=== PATIENT | female | born 1950 | race Caucasian/White ===

== ENCOUNTER → 2018-09-13 | Outpatient (CLI) | payer OTHER, BC | LOC: FIMAGING 15:43 | PROVIDERS: ATTEND Physician Assistant Surgical | DX: M50.321 Other cervical disc degeneration at C4-C5 level (principal); M43.8X2 Other specified deforming dorsopathies, cervical region ==

== ENCOUNTER 2018-09-14 10:37 | Inpatient (IN) | payer OTHER, BC ==
[2018-09-14] MEDS ORDERED: ceFAZolin 2 GM/DEXTROSE 100 ML IV ONE (10:59)
[2018-09-14] MEDS ORDERED: ACETAMINOPHEN 500 MG TAB PO ONE (10:59)
[2018-09-14] MEDS ORDERED: GABAPENTIN 300 MG CAP PO ONE (10:59)
[2018-09-14] MEDS ORDERED: LR 1,000 ML IV ONE (10:59)
[2018-09-14] MEDS ORDERED: LIDOCAINE 1% 2 ML INJ ID PRN (10:59)
[2018-09-14 11:42] LABS: PLATELET COUNT 250 10^3/uL (150-400)
--- NOTE | 2018-09-14 11:53 | PDHPUP ---
History & Physical Update H&P update statement: This history and physical update is based on an assessment of the patient which was completed after admission or registration (within 24 hours), but prior to the surgery/procedure. H&P update: H&P reviewed & patient examined, no change in patient's condition since H&P completed
[2018-09-14] MEDS ORDERED: EPINEPHrine 1 MG/ML INJ ONE (12:08)
[2018-09-14] MEDS ORDERED: CHLORHEXIDINE GLUC HIBICLENS 118 ML BTL TP ONE (12:08)
[2018-09-14] MEDS ORDERED: THROMBIN (BOVINE) 5,000 UNIT VIAL TP ONE (12:08)
[2018-09-14] MEDS ORDERED: BUPIVACAINE 0.25% 30 ML SDV ONE (12:08)
[2018-09-14] MEDS ORDERED: BACITRACIN 50,000 UNITS/10 ML SYR IRR ONE (12:09)
[2018-09-14] MEDS ORDERED: MIDAZOLAM 2 MG/2 ML VIAL IVP ONE (12:17)
--- NOTE | 2018-09-14 12:17 | PDANEPAE ---
ANE Past Medical History - Cardiovascular History Hx Hypertension: Yes Hx Arrhythmias: No Hx Chest Pain: No Hx Coronary Artery / Peripheral Vascular Disease: No Hx CHF / Valvular Disease: No Hx Palpitations: No Cardiovascular History Comment: ONCE WAS TOLD I HAD MV PROLAPSE, NEVER HAD ANY PROBLEMS - Pulmonary History Hx COPD: No Hx Asthma/Reactive Airway Disease: No Hx Recent Upper Respiratory Infection: No Hx Oxygen in Use at Home: No Hx Sleep Apnea: No Sleep Apnea Screening Result - Last Documented: Negative - Neurologic History Hx Cerebrovascular Accident: No Hx Seizures: No Hx Dementia: No - Endocrine History Hx Diabetes: No - Renal History Hx Renal Disorders: No - Liver History Hx Hepatic Disorders: No Hepatic History Comment: HEMACHROMATOSIS - Neurological & Psychiatric Hx Hx Neurological and Psychiatric Disorders: Yes Neurological / Psychiatric History Comment: LUPUS,FIBROMYALGIA - Cancer History Hx Cancer: No - Congenital Disorder History Hx Congenital Disorders: Yes Congenital History Comment: HEMACHROMATOSIS - GI History Hx Gastrointestinal Disorders: Yes Gastrointestinal History Comment: 2011 BOWEL BLOCKAGE. AND RESECTION - Other Health History Other Health History: NONE - Chronic Pain History Chronic Pain: Yes (FIBROMYALGIA) - Surgical History Prior Surgeries: 2011 BOWEL OBSTRUCTION WITH RESECTION. HERNIA REPAIR ANE Review of Systems Review of Systems: - Exercise capacity METS (RN): 4 METS ANE Patient History - Allergies Allergies/Adverse Reactions: duloxetine [From Cymbalta] Allergy (Severe, Verified 08/30/18 12:41) Swelling/neck,face,throat rituximab [From Rituxan] Allergy (Intermediate, Verified 08/30/18 12:41) Infusion reaction - Home Medications Home Medications: Acetaminophen [Tylenol Arthritis] 1,300 mg PO BID@,08/30/18 [Last Taken Unknown] Aspirin [Aspirin 81mg (*)] 81 mg PO DAILY@08/30/18 [Last Taken Unknown] Atenolol [Tenormin 100 mg (*)] 100 mg PO DAILY@08/30/18 [Last Taken Unknown] Belimumab [Benlysta] 200 mg SQ FR 08/30/18 [Last Taken Unknown] Cholecalciferol Vit D3 [Vitamin D3 (*)] 1,000 units PO DAILY@08/30/18 [Last Taken Unknown] Cyanocobalamin [Vitamin B12 (*)] 1,000 mcg PO DAILY@08/30/18 [Last Taken Unknown] Diltiazem Cd [Cardizem ER 120 MG (*)] 120 mg PO DAILY@08/30/18 [Last Taken Unknown] Diltiazem Cd [Cardizem ER 120 MG (*)] 240 mg PO DAILY@08/30/18 [Last Taken Unknown] Eletriptan Hydrobromide [Relpax] 20 mg PO DAILY PRN 08/30/18 [Last Taken Unknown ] Estradiol/Norethindrone Acet [Activella 1 mg-0.5 mg Tablet] 1 each PO DAILY@08/30/18 [Last Taken Unknown] Eszopiclone [Lunesta] 3 mg PO HS 08/30/18 [Last Taken Unknown] Folic Acid [Folic Acid 1 MG (*)] 3 mg PO DAILY@08/30/18 [Last Taken Unknown] HYDROmorphONE HCL [Exalgo] 8 mg PO DAILY@08/30/18 [Last Taken Unknown] HYDROmorphone HCL [Dilaudid 2 mg (*)] 2 - 4 mg PO Q6H PRN 08/30/18 [Last Taken Unknown] Hydroxychloroquine Sulfate [Plaquenil 200 mg (*)] 200 mg PO BID@,08/30/18 [ Last Taken Unknown] Levothyroxine [Synthroid 150 mcg (*)] 150 mcg PO DAILY06 08/30/18 [Last Taken Unknown] MILNACIPRAN HCL [Savella 100 mg] 100 mg PO BID@,08/30/18 [Last Taken Unknown] Melatonin 10 mg PO HS 08/30/18 [Last Taken Unknown] Naproxen Sodium [Aleve 220 MG (*)] 440 mg PO BID@,08/30/18 [Last Taken Unknown] sulfaSALAzine [Azulfidine 500 MG (*)] 1,000 mg PO BID@,08/30/18 [Last Taken Unknown] - NPO status NPO Since - Liquids (Date): 09/14/18 NPO Since - Liquids (Time): 07:30 NPO Since - Solids (Date): 09/13/18 NPO Since - Solids (Time): 20:00 - Smoking Hx Smoking Status: Former smoker - Family Anes Hx Family Hx Anesthesia Complications: NONE ANE Labs/Vital Signs - Labs Result Diagrams: 09/14/18 11:27 - Vital Signs Blood Pressure: 136/82 Heart Rate: 70 Respiratory Rate: 18 O2 Sat (%): 96 Height: 172.72 cm Weight: 65.317 kg ANE Physical Exam - Airway Neck exam: decreased ROM Mallampati Score: Class 3 Mouth exam: normal dental/mouth exam - Pulmonary Pulmonary: no respiratory distress, no rales or rhonchi - Cardiovascular Cardiovascular: regular rate and rhythym, no murmur, rub, or gallop - ASA Status ASA Status: III ANE Anesthesia Plan Anesthesia Plan: general endotracheal anesthesia Total IV Anesthesia: Yes
[2018-09-14] MEDS ORDERED: MIDAZOLAM 2 MG/2 ML VIAL ONE (12:19)
[2018-09-14] MEDS ORDERED: PROPOFOL 200 MG/20 ML VIAL ONE (12:32)
[2018-09-14] MEDS ORDERED: REMIFENTANIL HCL 1 MG VIAL ONE ×3 (12:32→13:34)
[2018-09-14] MEDS ORDERED: PROPOFOL/EMULSION 500 MG/50 ML BOTTLE IV ONE ×4 (12:33→13:34)
[2018-09-14] MEDS ORDERED: DEXAMETHASONE 4 MG/ML VIAL ONE ×3 (13:24)
[2018-09-14] MEDS ORDERED: ONDANSETRON 4 MG/2 ML VIAL ONE (14:31)
[2018-09-14] MEDS ORDERED: ELETRIPTAN HYDROBROMIDE 20 MG PO PRN (14:54)
[2018-09-14] MEDS ORDERED: NALOXONE HCL 0.4 MG/ML INJ IVP PRN (14:54)
[2018-09-14] MEDS ORDERED: ONDANSETRON 4 MG/2 ML VIAL IVP PRN ×2 (14:54→14:56)
[2018-09-14] MEDS ORDERED: MEPERIDINE 25 MG/0.5 ML AMP IVP PRN (14:54)
[2018-09-14] MEDS ORDERED: fentaNYL 100 MCG/2 ML INJ IVP PRN (14:54)
[2018-09-14] MEDS ORDERED: LR 500 ML IV PRN (14:54)
[2018-09-14] MEDS ORDERED: PROMETHAZINE HCL 25 MG/ML INJ IVP PRN (14:54)
[2018-09-14] MEDS ORDERED: HYDROmorphONE/DILAUDID 2 MG/ML INJ ONE ×3 (14:55→16:34)
[2018-09-14] MEDS ORDERED: LACTULOSE 20 GM/30 ML UDCUP PO PRN (14:56)
[2018-09-14] MEDS ORDERED: BISACODYL 10 MG SUPP PR PRN (14:56)
[2018-09-14] MEDS ORDERED: ONDANSETRON DISINTEGRATING 4 MG TAB PO PRN (14:56)
[2018-09-14] MEDS ORDERED: MAGNESIUM HYDROXIDE 30 ML UDCUP PO PRN (14:56)
[2018-09-14] MEDS ORDERED: diphenhydrAMINE 25 MG CAP PO PRN (14:56)
--- NOTE | 2018-09-14 15:00 | SOAPPROG ---
SOAP Progress Note Assessment/Plan: Assessment: 68 yo F sp C4-6 ACDF Plan: stable GONZALEZ x 1 hard collar at all times please call with neuro changes 09/14/18 14:59 Subjective: + neck pain, no arm pain, no weakness. Objective: Vital Signs Temp Pulse Resp BP Pulse Ox 36.6 C 70 18 136/82 H 96 09/14/18 11:18 09/14/18 12:17 09/14/18 12:17 09/14/18 12:17 09/14/18 12:17 Laboratory Results 09/14/18 11:27 somnolent PERRL, EOMI FLORENCE x 4 + light touch ICD10 Worksheet Patient Problems: Problems Problem Status Onset Fusion of spine of cervical region Acute - ICD10 Problem Qualifiers (1) Fusion of spine of cervical region
[2018-09-14] MEDS ORDERED: DIAZEPAM 5 MG/ML 1 ML SYR ONE (15:05)
[2018-09-14] MEDS: DIAZEPAM 5 MG/ML 1 ML SYR IVP PRN ×2 (15:07→15:48)
--- NOTE | 2018-09-14 15:13 | POSTANESTH ---
Post Anesthetic Evaluation Cardiovascular Status: Normal, Stable Respiratory Status: Normal, Stable Level of Consciousness/Mental Status: Can Participate in Eval, Alert and Oriented Pain Control: Inadeq, Add Tx Required Nausea/Vomiting Control: Adequate, Prn Tx Ordered Complications Possibly Related to Anesthesia: None Noted (In PACU for pain control issues given the extreme amount of outpatient dilaudid the patient is on. Left PACU after patient settled and in an appropriate and tolerable amount of discomfort)
[2018-09-14] MEDS: HYDROmorphONE/DILAUDID 2 MG/ML INJ IVP PRN ×7 (15:14→16:45)
--- NOTE | 2018-09-14 15:16 | GOP ---
DATE OF OPERATION: 09/14/2018 SURGEON: Yomi Phillips MD NEUROSURGEON: Ymoi Phillips MD. DEAN OF STUDENTS: BAY Barr ANESTHESIA: General endotracheal. 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 PROCEDURE PERFORMED: Mini open exposure for complete C4-5 and C5-6 anterior cervical diskectomy and fusion/arthrodesis with 2 structural PEEK interbody spacers and local autograft, along with placement of a 43 mm LnK CastleLoc-P anterior cervical plate with self-drilling screws from C4-C6. Partial C5 vertebral corpectomy for decompression of spinal cord. FINDINGS: ESTIMATED BLOOD LOSS: 25 cc. INDICATIONS: The patient is a 68-year-old woman with myelopathic symptoms and multilevel cervical sp ondylosis with stenosis and spinal cord compression with instability on flexion-extension views. She presents now for multilevel cervical decompression stabilization. We discussed the possibility of i ncluding C6-7 in the fusion, but felt that the majority of her symptoms were most likely coming from C4-5 and C5-6, and I advised against performing the 3-level fusion, including C6-7. She understands that she may need further surgery at that level in the future. DESCRIPTION OF PROCEDURE: After informed consent was obtained, the patient was taken to the operatin g room and placed in the supine position with the head in the halter retractor system after baseline neuromonitoring signals were obtained. The anterior cervical region was prepped and draped in steril e fashion, and after fluoroscopic localization of the correct levels, the subcutaneous and intramuscu lar tissues were infiltrated with local anesthesia. A horizontal linear incision was then created at the level of the C5 vertebral body in a skin crease. This was carried through the platysmal layer using monopolar electrocautery and carried in the avas cular plane between the sternocleidomastoid and carotid sheath laterally and the strap muscles, trach ea, and esophagus medially down to the prevertebral fascia, which was carefully incised with Metgasperba um scissors. The C4-5 and C5-6 interspaces were identified and re-verified using intraoperative fluoroscopy. Foll owing this, the large osteophytes were carefully removed and harvested for local autograft. The Casp ar distraction pins were inserted serially at C4-5 and C5-6 with a slight amount of distraction acros s the interspaces, during which time, complete diskectomies were performed with removal of the adzing and boring machine operator ior longitudinal ligament and bilateral foraminotomies were performed at each level. There was an ex tensive drilling required due to the posteriorly protruding osteophytes and the irregularity of the d isk spaces, including the superior and inferior endplate of C5. This amounted to approximately 50% o f the vertebral body for partial C5 vertebral corpectomy in order to adequately decompress the spinal canal and spinal cord. Following adequate decompression, in preparation of the remaining endplates, the interspaces were bot h packed with 2 structural PEEK interbody spacers measuring 10 and 11 mm in height respectively with local autograft, packed in the center under fluoroscopic image guidance. The distraction was removed and appropriately size 43 mm LnK CastleLoc-P anterior cervical plate was then placed and secured wit h self-drilling screws at C4, C5 and C6. Following re-verification of good position of the plate scr ews and interbody spacers using biplanar fluoroscopy, the locking mechanisms were engaged. A drain was placed. The subcutaneous and intramuscular tissues were re-infiltrated with local anesth esia. The anterior hole of the plate was gently packed with residual local autograft, and then, the wound was closed in a layered fashion using interrupted Vicryl sutures, followed by Steri-Strips on t he skin. COMPLICATIONS: None. DISPOSITION: The patient is currently in the process of being repositioned for extubation. /[id number]/MODL
[2018-09-14] MEDS ORDERED: KETAMINE 200 MG/20 ML VIAL ONE (15:21)
[2018-09-14] MEDS ORDERED: KETAMINE 7 MG in SYRINGE 0 ML IVP ONE (15:23)
[2018-09-14] MEDS ORDERED: METOPROLOL TARTRATE 5 MG/5 ML INJ ONE (15:42)
[2018-09-14] MEDS: METOPROLOL TARTRATE 5 MG/5 ML INJ IVP SCH ×4 (15:50→16:20)
[2018-09-14] MEDS: DEXMEDETOMIDINE HCL 400 MCG in NS 100 ML IV SCH ×2 (16:28→23:58)
--- NOTE | 2018-09-14 16:43 | PDMN ---
Medical Necessity Medical [place] [facility] [place]ervical [place], Anterior, A-1day: 68 yo s/p ACDF C4 -6 admit to IP status for comorbidities of HTN, hematochromatosis, lupus, fibromyalgia, bowel obstruction w/ resect in past; ASA III per anesthesiology
[2018-09-14] MEDS: NS 1,000 ML IV SCH ×2 (17:39→17:47)
[2018-09-14] MEDS: DILTIAZEM CD 120 MG CAP PO SCH (17:43)
[2018-09-14] MEDS: Milnacipran Hcl [Savella 100 Mg] PO SCH (17:45)
[2018-09-14] MEDS: POLYETHYLENE GLYCOL 3350 17 GM PKT PO SCH ×2 (17:46→20:09)
[2018-09-14] MEDS: HYDROmorphONE/DILAUDID 1 MG/ML INJ IVP PRN ×2 (17:52→19:13)
[2018-09-14] MEDS: HYDROXYCHLOROQUINE SULFATE 200 MG TAB PO SCH (18:25)
[2018-09-14] MEDS: sulfaSALAzine 500 MG TAB PO SCH (18:26)
[2018-09-14] MEDS: ceFAZolin 2 GM/DEXTROSE 100 ML IV SCH (20:02)
[2018-09-14] MEDS: METHOCARBAMOL 750 MG TAB PO PRN (20:08)
[2018-09-14] MEDS: MELATONIN 3 MG TAB PO SCH (20:08)
[2018-09-14] MEDS: SENNOSIDES/DOCUSATE SODIUM TAB PO SCH (20:09)
[2018-09-14] MEDS: FAMOTIDINE 20 MG TAB PO SCH (20:09)
[2018-09-14] MEDS ORDERED: Eszopiclone [Lunesta] 3 MG PO SCH (21:00)
[2018-09-14] MEDS ORDERED: ZOLPIDEM TARTRATE 5 MG TAB PO PRN (22:00)
[2018-09-14] MEDS: HYDROmorphONE/DILAUDID 2 MG TAB PO PRN (22:42)
[2018-09-15] MEDS: METHOCARBAMOL 750 MG TAB PO PRN ×2 (02:32→20:01)
[2018-09-15] MEDS: HYDROmorphONE/DILAUDID 1 MG/ML INJ IVP PRN ×4 (02:32→16:36)
[2018-09-15] MEDS: HYDROmorphONE/DILAUDID 2 MG TAB PO PRN ×4 (04:59→20:00)
[2018-09-15] MEDS: LEVOTHYROXINE 150 MCG TAB PO SCH (05:00)
[2018-09-15] MEDS: ceFAZolin 2 GM/DEXTROSE 100 ML IV SCH (05:00)
[2018-09-15 06:21] LABS: PLATELET COUNT 180 10^3/uL (150-400)
[2018-09-15] MEDS: DEXMEDETOMIDINE HCL 400 MCG in NS 100 ML IV SCH (07:30)
[2018-09-15] MEDS: FOLIC ACID 1 MG TAB PO SCH (07:37)
[2018-09-15] MEDS: HYDROXYCHLOROQUINE SULFATE 200 MG TAB PO SCH ×2 (07:37→17:30)
[2018-09-15] MEDS: FAMOTIDINE 20 MG TAB PO SCH ×2 (07:38→20:00)
[2018-09-15] MEDS: POLYETHYLENE GLYCOL 3350 17 GM PKT PO SCH ×3 (07:38→20:03)
[2018-09-15] MEDS: SENNOSIDES/DOCUSATE SODIUM TAB PO SCH ×2 (07:38→20:00)
[2018-09-15] MEDS: ATENOLOL 100 MG TAB PO SCH (07:38)
[2018-09-15] MEDS: DILTIAZEM CD 120 MG CAP PO SCH ×2 (07:41→17:27)
--- NOTE | 2018-09-15 07:46 | SOAPPROG ---
SOAP Progress Note Assessment/Plan: Assessment: POD #1 sp C4-6 ACDF doing well this AM. Chronic pain with high narc tolerance Currently on Precedex Low Na+ Plan: will repeat Na+ later today CPM with pain control Continue Hard collar continue GONZALEZ OK for floor once off of Precedex Xrays today Cspine 09/15/18 07:43 09/15/18 07:45 Subjective: Sitting in bedside chair. Pain controlled. States her burning hand pain is better, has residual numbness in finger tips. Objective: Vital Signs Temp Pulse Resp BP Pulse Ox 36.3 C 67 13 112/63 92 09/15/18 04:00 09/15/18 07:41 09/15/18 06:00 09/15/18 07:41 09/15/18 06:00 Laboratory Results 09/15/18 05:38 09/15/18 05:38 09/14/18 09/15/18 09/16/18 05:59 05:59 05:59 Intake Total 3492 Output Total 1117 Balance 2375 Neuro: STUBBS, sens +LT follows commands speech clear equal construction quality control manager. 5/5 bilateral upper ext sens decreased in finger tips. ICD10 Worksheet Patient Problems: Problems Problem Status Onset Fusion of spine of cervical region Acute
[2018-09-15] MEDS: sulfaSALAzine 500 MG TAB PO SCH ×2 (07:48→17:30)
[2018-09-15] MEDS: NORETHINDRONE ACET PO SCH (07:57)
[2018-09-15] MEDS: HYDROMORPHONE HCL 8 MG PO SCH ×2 (07:57→11:53)
[2018-09-15] MEDS: ESTRADIOL PO SCH (07:57)
[2018-09-15] MEDS: Milnacipran Hcl [Savella 100 Mg] PO SCH ×3 (07:58→17:51)
[2018-09-15] MEDS ORDERED: BELIMUMAB 200 MG SQ SCH (09:00)
--- NOTE | 2018-09-15 09:25 | ASMTCASEMG ---
Living Arrangements What is your living Answers: With Spouse arrangement? Who do you live with? Type Of Residence What kind of residence do Answers: House you live in? Type of Residence Facility Name Notes: Patient lives in [place], [place] with her Discharge Plan Comments Coordination Status Comments Notes: Patient is a 68yo female who comes to [facility] for surgery; C4/5, C5/6 anterior discectomy with PEEK spacer and plating due to cervical disc degeneration. OT/PT evals have been ordered for the patient. D/C plan TBD. Patient lives in [place], [place] with her . CM will follow. Date Signed: 09/15/2018 09:24 AM Electronically Signed By:Adeline Cisneros LCSW
[2018-09-15] MEDS: SODIUM CHLORIDE 1,000 MG TAB PO SCH ×3 (09:27→17:30)
[2018-09-15] MEDS: DIAZEPAM 10 MG TAB PO PRN ×2 (09:28→17:31)
[2018-09-15] MEDS: MELATONIN 3 MG TAB PO SCH (20:00)
[2018-09-16] MEDS: HYDROmorphONE/DILAUDID 2 MG TAB PO PRN ×2 (00:37→06:43)
[2018-09-16] MEDS: DIAZEPAM 10 MG TAB PO PRN ×2 (03:11→11:51)
[2018-09-16] MEDS: LEVOTHYROXINE 150 MCG TAB PO SCH (05:04)
[2018-09-16] MEDS: METHOCARBAMOL 750 MG TAB PO PRN (06:43)
--- NOTE | 2018-09-16 07:16 | NEUSURGPN ---
Date of Surgery: 09/14/18 Post Op Day: 2 Assessment/Plan: Assessment: 68 yr old F POD #2 sp C4-6 ACDF Plan: -Na 136 this am -Continue Hard collar -Pain seems controlled with oral medications, patient has expected trap discomfort -Ok to discharge home with [facility] today -Remove GONZALEZ prior to discharge -Post op xrays show stable hardware placement -Discussed patient with Dr Oleary Please call neuorsurgery with questions/concerns Subjective: Trap pain, doing well otherwise, pre op arm pain improved Objective: AxO x4 STUBBS x4 5/5 BUE, BLE Dressing/incision CDI GONZALEZ patent Collar in place Neuro Check Frequency: per routine Urinary Catheter in Place: No Catheter Insertion Date: 09/14/18 - Physician Discussed Patient with DrMichael: Alan Neurosurgery Physical Exam - Vitals, I&O, Labs I and O 09/15/18 09/16/18 09/17/18 05:59 05:59 05:59 Intake Total 3492 550 Output Total 1117 27 Balance 2375 523 Weight 65.317 kg Intake: Oral (ml) 410 550 IV Intake (ml) 1700 IV Infused (ml) 1382 Dexmedetomidine HCl 400 182 mcg In Ns 100 ml @ Titrate IV CONT JEB Rx#: [id number] Ns 1,000 ml @ 100 mls/hr 1000 IV CONT JEB Rx#: [id number] ceFAZolin 2 GM/DEXTROSE 200 100 ml @ 200 mls/hr IV Q8H JEB Rx#:[id number] Output: Urine (ml) 975 Catheter 975 Estimated Blood Loss (ml) 50 GONZALEZ Drain Output (ml) 92 27 Anterior Neck Anthony 92 27 Carvalho Other: Intake Quantity Yes Yes Sufficient Number of Voids Toilet 1 1 Vital Signs Temp Pulse Resp BP Pulse Ox 36.8 C 84 11 L 126/59 H 93 09/16/18 04:00 09/16/18 04:00 09/16/18 04:00 09/16/18 04:00 09/16/18 04:00 Laboratory Results 09/15/18 05:38 09/15/18 11:55 ICD10 Worksheet Patient Problems: Problems Problem Status Onset Fusion of spine of cervical region Acute
--- NOTE | 2018-09-16 07:25 | PDIAF ---
- Diagnosis Diagnosis: S/P ACDF C4-6 Code Status: Full Code - Medication Management Discharge Medications: electronically signed and located in the Home Medication List. PICC Care - Routine: N/A - Orders Services needed: Home Care, Physical Therapy Home Care Face to Face: I certify that this patient was under my care and that I had the required [id number] encounter meeting the encounter requirements on the discharge day. My findings support the fact that the patient is homebound as defined in Home Care Face to Face Continued: CMS Chapter 7 Medicare Benefits Manual 30.1.1 , The condition of the patient is such that there exists a normal inability to leave home and consequently, leaving home would require a considerable and taxing effort. Diet Recommendation: no restrictions on diet Diet Texture: Regular Texture Diet Additional Instructions: No NSAIDS for 6 months following any fusion procedure. Wear collar at all times, ok to remove to shower if needed Ok to shower Do not submerge incision Do not bend or twist neck Do not lift greater than 10 pounds - Follow Up Care Current Providers and Referrals: NONE *PRIMARY CARE P,. [Primary Care Provider] - Yomi Phillips MD [Medical Doctor] - follow up in 2 weeks
[2018-09-16 07:34] VITALS: BP 141/79
[2018-09-16] MEDS: ATENOLOL 100 MG TAB PO SCH (07:54)
[2018-09-16] MEDS: DILTIAZEM CD 120 MG CAP PO SCH (07:55)
[2018-09-16] MEDS: Milnacipran Hcl [Savella 100 Mg] PO SCH (07:55)
[2018-09-16] MEDS: sulfaSALAzine 500 MG TAB PO SCH (07:56)
[2018-09-16] MEDS: ESTRADIOL PO SCH (07:56)
[2018-09-16] MEDS: HYDROXYCHLOROQUINE SULFATE 200 MG TAB PO SCH (07:56)
[2018-09-16] MEDS: NORETHINDRONE ACET PO SCH (07:56)
[2018-09-16] MEDS: FOLIC ACID 1 MG TAB PO SCH (07:56)
[2018-09-16] MEDS: SODIUM CHLORIDE 1,000 MG TAB PO SCH (07:57)
[2018-09-16] MEDS: HYDROMORPHONE HCL 8 MG PO SCH (07:58)
[2018-09-16] MEDS: FAMOTIDINE 20 MG TAB PO SCH (08:01)
[2018-09-16] MEDS: SENNOSIDES/DOCUSATE SODIUM TAB PO SCH ×2 (08:02→09:53)
[2018-09-16] MEDS: POLYETHYLENE GLYCOL 3350 17 GM PKT PO SCH (09:53)
[2018-09-16] MEDS ORDERED: ACETAMINOPHEN 500 MG TAB PO SCH (10:30)
--- NOTE | 2018-09-17 00:21 | ASMTLACE ---
KHALIF Length of stay for Answers: 2 days current admission Acuity / Level of Answers: Yes Care: Did the patient have an inpatient admission? Comorbidities - select Answers: Other Notes: Fusion of spine all that apply # of Emergency department Answers: 0 visits in the last 6 months Score: 6 Date Signed: 09/17/2018 12:20 AM Electronically Signed By:Dena Underwood RN
--- NOTE | 2018-09-17 00:30 | ASMTCMCOM ---
CM Note CM Note Notes: Late entry - CM note for Tuesday09/16/18 Reviewed chart, spoke with KAYLA Feliciano. Per notes, pt to discharge with HHC today. Pt left prior to speaking with CM regarding HHC plan and options. It is unclear where the pt will be staying s/p discharge and if HHC will be needed in [place] or [place]. No IM/JAMES forms signed, pt left prior to signing. Attempted to call pt's cell phone twice following discharge. Left voice message; awaiting call back. Pt to follow up as directed. CM will attempt to arrange HHC, if possible, on Tuesday09/17/18; will continue to follow. Discharge Plan: Home with family support and possible HHC Date Signed: 09/17/2018 12:29 AM Electronically Signed By:Dena Underwood RN
[2018-09-17] MEDS ORDERED: ENOXAPARIN 40 MG/0.4 ML SYR SC SCH (09:00)
--- NOTE | 2018-09-17 17:16 | ASMTCMCOM ---
CM Note CM Note Notes: CM attempted again to call pt to inquire if she wanted home PT. Pt left yesterday before CM had a chance to discuss poc. CM left messages for pt and . Notified CUSTOMER MANAGEMENT SPECIALIST Marisol Hutchison, she stated pt is staying in [place] and will follow up with MD before returning to [place]. Date Signed: 09/17/2018 05:16 PM Electronically Signed By:Maria Alejandra Noland RN
== END 2018-09-16 12:00 | disposition home health service (06) | DRG 472 ==
LOC: F3N 10:37 → F2N 17:31
PROVIDERS: ADMIT Neurological Surgery; ATTEND Neurological Surgery
DX: M47.12 Other spondylosis with myelopathy, cervical region (principal); M40.292 Other kyphosis, cervical region; M43.12 Spondylolisthesis, cervical region; F11.20 Opioid dependence, uncomplicated; I10 Essential (primary) hypertension; E83.119 Hemochromatosis, unspecified; M32.9 Systemic lupus erythematosus, unspecified; M79.7 Fibromyalgia; Z87.891 Personal history of nicotine dependence
CPT/HCPCS: 97116-GP; 97161-GP; 97165-GO; 97530-GP; C1713; J0171; J0690; J1100; J1170; J2250; J2405; J2704; J3360

== ENCOUNTER 2018-09-21 00:34 | Observation (INO) | payer OTHER, BC ==
--- NOTE | 2018-09-21 02:16 | EDPHY ---
H & P Stated Complaint: Cervical fusion 1 wk, tnight severe bilateral shoulder and arm pain Time Seen by Provider: 09/21/18 02:16 HPI/ROS: HPI CHIEF COMPLAINT: Neck pain and neck spasms. HISTORY OF PRESENT ILLNESS: Patient is a 68-year-old female she presents emergency room with upper back spasms, arm pain, neck pain. She just recently had a fusion of her cervical spine on the by Dr. Phillips. She remains in her cervical collar she presents emergency room stating that she is having upper back spasms arm spasms and neck pain. She denies any trouble breathing or trouble swallowing. Denies chest pain or shortness of breath denies fever. Of note the patient is writhing in bed in pain and is uncomfortable. She reports to me at 9:30 a.m. Tonight it is now 220 in the morning that she took 8 mg of Dilaudid, as well as 10 mg of Valium as well as 10 mg of Flexeril without much relief. Patient denies any trouble breathing or trouble swallowing. Past Medical History: Rheumatoid arthritis and lupus. Past Surgical History: Recent cervical spine fusion Social History: Denies drugs alcohol tobacco. at bedside Family History: Noncontributory ROS REVIEW OF SYSTEMS: Somewhat limited due to patient not answering any of my questions and writhing back and forth in bed. Exam Constitutional writhing in bed. triage nursing summary reviewed, vital signs reviewed, awake/alert. Eyes normal conjunctivae and sclera, EOMI, PERRLA. HENT normal inspection, atraumatic, moist mucus membranes, no epistaxis, neck supple/ no meningismus, no raccoon eyes. Respiratory clear to auscultation bilaterally, normal breath sounds, no respiratory distress, no wheezing. Cardiovascular rate normal, regular rhythm, no murmur, no edema, distal pulses normal. Gastrointestinal soft, non-tender, no rebound, no guarding, normal bowel sounds, no distension, no pulsatile mass. Genitourinary no CVA tenderness. Musculoskeletal no midline vertebral tenderness, full range of motion, no calf swelling, no tenderness of extremities, no meningismus, good pulses, neurovascularly intact. Skin pink, warm, & dry, no rash, skin atraumatic. Neurologic good before school babysitter strength bilaterally, good arm strength bilaterally. awake , alert and oriented x 3, AAOx3, moves all 4 extremities equally, motor intact, sensory intact, CN II-XII intact, normal cerebellar, normal vision, normal speech. Psychiatric normal mood/affect. Heme/Lymph/Immune no lymphadenopathy. Differential Diagnosis: Includes but is not limited to in a particular order muscle spasms, postoperative pain, infection Medical Decision Making: Plan for this patient IV establishment IV fluid bolus , IV Dilaudid for pain control basic blood work and re-evaluate. Re-evaluation: 0315AM: I spoke with Neurosurgery Alba Colon we discussed case in detail the patient has intractable neck and back pain. I went over the patient's CT scan results. I have re-evaluated the patient at 3:18 a.m.. She agrees for admission. CT scan results faxed to me by direct Radiology small amount of high density fluid within the pre sacral space at the level the postsurgical hardware in inferior to it given the density abscess or hematoma is possible there is no significant narrowing of the airway at this time I discussed CT results with Dr. Fox. Plan for hospital admission for pain control. The patient does not have any trouble swallowing or trouble breathing. Patient received a mg of Dilaudid with minimal improvement of her pain. Will repeat dosing. Patient neurological exam is unremarkable here. Normal before school babysitter strength bilaterally good arm strength bilaterally. Source: Patient - Personal History Current Tetanus/Diphtheria Vaccine: Yes Current Tetanus Diphtheria and Acellular Pertussis (TDAP): Yes - Medical/Surgical History Hx Asthma: No Hx Chronic Respiratory Disease: No Hx Diabetes: No Hx Cardiac Disease: No Hx Renal Disease: No Hx Cirrhosis: No Hx Alcoholism: No Hx HIV/AIDS: No Hx Splenectomy or Spleen Trauma: No Other PMH: Migranes, HTN, fibromyalgia, hypothyroid, SBO, cataract surgery, lupus, RA, - Social History Smoking Status: Former smoker Constitutional: Initial Vital Signs Heart Rate 112 H 09/21/18 00:38 Respiratory Rate 20 09/21/18 00:38 Blood Pressure 164/104 H 09/21/18 00:38 O2 Sat (%) 98 09/21/18 00:38 O2 Delivery Mode Room Air O2 (L/minute) 2 Allergies/Adverse Reactions: duloxetine [From Cymbalta] Allergy (Severe, Verified 09/21/18 00:38) Swelling/neck,face,throat rituximab [From Rituxan] Allergy (Intermediate, Verified 09/21/18 00:38) Infusion reaction Home Medications: Medication Instructions Recorded Acetaminophen [Tylenol Arthritis] 1,300 mg PO BID@,08/30/18 Atenolol [Tenormin 100 mg (*)] 100 mg PO DAILY@08/30/18 Belimumab [Benlysta] 200 mg SQ FR 08/30/18 Cholecalciferol Vit D3 [Vitamin D3 1,000 units PO DAILY@08/30/18 (*)] Cyanocobalamin [Vitamin B12 (*)] 1,000 mcg PO DAILY@08/30/18 Diltiazem Cd [Cardizem ER 120 MG 120 mg PO DAILY@08/30/18 (*)] Diltiazem Cd [Cardizem ER 120 MG 240 mg PO DAILY@08/30/18 (*)] Eletriptan Hydrobromide [Relpax] 20 mg PO DAILY PRN 08/30/18 Estradiol/Norethindrone Acet 1 each PO DAILY@08/30/18 [Activella 1 mg-0.5 mg Tablet] Eszopiclone [Lunesta] 3 mg PO HS 08/30/18 Folic Acid [Folic Acid 1 MG (*)] 3 mg PO DAILY@08/30/18 HYDROmorphONE HCL [Exalgo] 8 mg PO DAILY@08/30/18 HYDROmorphone HCL [Dilaudid 2 mg 2 - 4 mg PO Q6H PRN 08/30/18 (*)] Hydroxychloroquine Sulfate 200 mg PO BID@,08/30/18 [Plaquenil 200 mg (*)] Levothyroxine [Synthroid 150 mcg 150 mcg PO DAILY06 08/30/18 (*)] MILNACIPRAN HCL [Savella 100 mg] 100 mg PO BID@,08/30/18 Melatonin 10 mg PO HS 08/30/18 sulfaSALAzine [Azulfidine 500 MG 1,000 mg PO BID@,08/30/18 (*)] Aspirin [Aspirin 81mg (*)] 81 mg PO DAILY@07 #1 09/16/18 Diazepam [Valium 10 MG (*)] 5 mg PO Q8HRS PRN #30 tab 09/16/18 Methocarbamol [Robaxin 750 mg (*)] 750 mg PO QID PRN #60 tab 09/16/18 Sennosides/Docusate Sodium 1 - 2 tab PO BID tab 09/16/18 [Senokot-S] Cyclobenzaprine [Flexeril 10 MG 10 mg PO TID PRN 09/21/18 (*)] Medical Decision Making - Data Points Laboratory Results: Laboratory Results 09/21/18 00:50 09/21/18 00:50 Medications Given: Acetaminophen (Tylenol) 650 mg PO Q4HRS PRN PRN Reason: Pain, Mild/Fever, Can Take PO Stop: 03/20/19 06:18 Last Admin: 09/22/18 02:45 Dose: 650 mg Acetaminophen (Tylenol) 1,300 mg PO BID@0700,1700 [facility] Stop: 03/20/19 16:59 Last Admin: 09/21/18 16:26 Dose: 1,300 mg Atenolol (Tenormin) 100 mg PO DAILY@07 [facility] Stop: 03/20/19 06:59 Last Admin: 09/21/18 07:30 Dose: 100 mg Diazepam (Valium) 5 mg PO Q4 PRN PRN Reason: Spasms Stop: 03/20/19 06:42 Last Admin: 09/22/18 02:44 Dose: 5 mg Diltiazem HCl (Cardizem Er Q24hr) 120 mg PO DAILY@17 [facility] Stop: 03/20/19 16:59 Last Admin: 09/21/18 16:29 Dose: 120 mg Diltiazem HCl (Cardizem Er Q24hr) 240 mg PO DAILY@07 [facility] Stop: 03/20/19 06:59 Last Admin: 09/21/18 07:31 Dose: 240 mg Enoxaparin Sodium (Lovenox) 40 mg SC DAILY [facility] Stop: 03/20/19 08:59 Last Admin: 09/21/18 07:32 Dose: 40 mg Hydromorphone HCl (Dilaudid) 1 mg IVP Q1 PRN PRN Reason: Pain, Breakthrough Stop: 10/01/18 06:35 Last Admin: 09/21/18 06:49 Dose: 1 mg Hydromorphone HCl (Dilaudid) 2 - 4 mg PO Q6H PRN PRN Reason: Pain, Severe Able to Take PO Stop: 10/01/18 06:42 Last Admin: 09/22/18 02:26 Dose: 4 mg Hydroxychloroquine Sulfate (Plaquenil) 200 mg PO BID@ [facility] PRN Reason: Protocol Stop: 10/21/18 06:59 Last Admin: 09/21/18 16:27 Dose: 200 mg Levothyroxine Sodium (Synthroid) 150 mcg PO DAILY06 [facility] Stop: 03/20/19 06:44 Last Admin: 09/21/18 07:31 Dose: 150 mcg Melatonin (Melatonin) 9 mg PO HS [facility] Stop: 03/20/19 20:59 Last Admin: 09/21/18 20:49 Dose: 9 mg Methocarbamol (Robaxin) 750 mg PO QID [facility] Stop: 03/20/19 11:59 Last Admin: 09/21/18 20:49 Dose: 750 mg Miscellaneous Medication (Estradiol/Norethindrone Acet [Activella 1 Mg-0.5 Mg Tablet]) 1 each PO DAILY@ [facility] Stop: 03/20/19 06:59 Last Admin: 09/21/18 11:26 Dose: Not Given Miscellaneous Medication (Hydromorphone Hcl [Exalgo]) 8 mg PO DAILY@ [facility] Stop: 03/20/19 06:59 Last Admin: 09/21/18 11:27 Dose: Not Given Miscellaneous Medication (Milnacipran Hcl [Savella 100 Mg]) 100 mg PO BID@ [facility] Stop: 03/20/19 06:59 Last Admin: 09/21/18 17:09 Dose: Not Given Senna/Docusate Sodium (Senokot-S) 1 - 2 tab PO BID [facility] Stop: 03/20/19 08:59 Last Admin: 09/21/18 20:49 Dose: 2 tab Sulfasalazine (Azulfidine) 1,000 mg PO BID@ [facility] Stop: 10/21/18 06:59 Last Admin: 09/21/18 16:28 Dose: 1,000 mg Zolpidem Tartrate (Ambien) 5 mg PO HS [facility] Stop: 03/20/19 20:59 Last Admin: 09/21/18 20:49 Dose: 5 mg Discontinued Medications Diazepam (Valium) 5 mg PO EDNOW ONE Stop: 09/21/18 03:39 Last Admin: 09/21/18 03:40 Dose: 5 mg Diazepam (Valium) 5 mg PO Q8HRS PRN PRN Reason: Spasms Stop: 03/20/19 06:42 Last Admin: 09/21/18 07:18 Dose: 5 mg Hydromorphone HCl (Dilaudid) 1 mg IVP EDNOW ONE Stop: 09/21/18 02:19 Last Admin: 09/21/18 02:23 Dose: 1 mg Hydromorphone HCl (Dilaudid) 1 mg IVP EDNOW ONE Stop: 09/21/18 02:36 Last Admin: 09/21/18 02:47 Dose: 1 mg Sodium Chloride (Ns) 1,000 mls @ 0 mls/hr IV EDNOW ONE; Wide Open PRN Reason: Protocol Stop: 09/21/18 02:19 Last Admin: 09/21/18 02:23 Dose: 1,000 mls Ondansetron HCl (Zofran) 4 mg IVP EDNOW ONE Stop: 09/21/18 02:19 Last Admin: 09/21/18 02:24 Dose: 4 mg Departure - Departure Disposition: [facility] Acute Clinical Impression: Neck pain Condition: Fair
[2018-09-21] MEDS ORDERED: NS 1,000 ML IV ONE (02:18)
[2018-09-21] MEDS ORDERED: ONDANSETRON 4 MG/2 ML VIAL IVP ONE (02:18)
[2018-09-21] MEDS ORDERED: HYDROmorphONE/DILAUDID 2 MG/ML INJ IVP ONE (02:18)
[2018-09-21 02:24] LABS: PLATELET COUNT 321 10^3/uL (150-400)
[2018-09-21] MEDS ORDERED: HYDROmorphONE/DILAUDID 1 MG/ML INJ IVP ONE (02:35)
[2018-09-21] MEDS ORDERED: DIAZEPAM 5 MG TAB PO ONE (03:38)
[2018-09-21] MEDS ORDERED: ONDANSETRON 4 MG/2 ML VIAL IVP PRN (06:19)
[2018-09-21] MEDS ORDERED: ONDANSETRON DISINTEGRATING 4 MG TAB PO PRN (06:19)
[2018-09-21] MEDS ORDERED: HYDROmorphONE/DILAUDID 1 MG/ML INJ IVP PRN (06:30)
[2018-09-21] MEDS ORDERED: HYDROmorphONE/DILAUDID 2 MG/ML INJ IVP PRN (06:36)
[2018-09-21] MEDS ORDERED: HYDROmorphONE/DILAUDID 1 MG/ML INJ ONE (06:37)
[2018-09-21] MEDS ORDERED: METHOCARBAMOL 750 MG TAB PO PRN (06:43)
[2018-09-21] MEDS ORDERED: DIAZEPAM 10 MG TAB PO PRN (06:43)
[2018-09-21] MEDS ORDERED: ELETRIPTAN HYDROBROMIDE 20 MG PO PRN (06:43)
[2018-09-21] MEDS: ATENOLOL 100 MG TAB PO SCH (07:30)
[2018-09-21] MEDS: sulfaSALAzine 500 MG TAB PO SCH ×2 (07:31→16:28)
[2018-09-21] MEDS: SENNOSIDES/DOCUSATE SODIUM TAB PO SCH ×2 (07:31→20:49)
[2018-09-21] MEDS: DILTIAZEM CD 120 MG CAP PO SCH (07:31)
[2018-09-21] MEDS: LEVOTHYROXINE 150 MCG TAB PO SCH (07:31)
[2018-09-21] MEDS: HYDROXYCHLOROQUINE SULFATE 200 MG TAB PO SCH ×2 (07:31→16:27)
[2018-09-21] MEDS: ACETAMINOPHEN 325 MG TAB PO PRN (07:32)
[2018-09-21] MEDS: ENOXAPARIN 40 MG/0.4 ML SYR SC SCH (07:32)
--- NOTE | 2018-09-21 08:42 | GHP ---
[f rep st] HISTORY AND PHYSICAL DATE OF ADMISSION: 09/21/2018 ADMISSION HISTORY AND PHYSICAL: CHIEF COMPLAINT: Neck pain, neck spasms. HISTORY OF PRESENT ILLNESS: Nela is a 68-year-old female who presented to the emergency department earlier this AM with upper back spasms, arm pain and neck pain. She did recently have a cervical fusion. It was an anterior approach done with Dr. Phillips on the of this month. She remains in a cervical collar. She presented to the emergency department complaining of upper back spasms, arm spasms and neck pain. She denies any shortness of breath , trouble breathing. No problems with swallowing. She is eating and drinking fine. She denies any chest pain or shortness of breath. Denies any fever. She is on home Dilaudid, Valium and Flexeril and has been taking this, was unsuccessful with home pain management and came to the emergency department for further assistance. She denies any loss of bowel or bladder control. No upper or lower extremity complaints other than some arm spasms occasionally that she describes in bilateral shoulders. The majority of her pain is localized in her neck. No headache, no diplopia, no blurred vision, no abdominal complaints, no complaints, no saddle numbness or lower extremity symptoms as noted. PAST MEDICAL HISTORY: 1. Rheumatoid arthritis. 2. Lupus. PAST SURGICAL HISTORY: Recent anterior cervical fusion done with Dr. Yomi Phillips on 09/14/2017. MEDICATIONS: Please see med rec form. ALLERGIES: Cymbalta and Rituxan. SOCIAL HISTORY: The patient lives in [place]. She is 68 years of age. She is . Denies any alcohol or tobacco use. Her is present. FAMILY HISTORY: Reviewed and noncontributory. IMMUNIZATIONS: Reported up to date. TRAVEL: No recent travel. REVIEW OF SYSTEMS: A complete 10-point review of systems was reviewed and negative. Otherwise, stated in HPI. PHYSICAL EXAM: GENERAL: This is an awake, alert, oriented female in no acute distress. VITAL SIGNS: Most recent vital signs: Blood pressure 164/82 with a MAP of 109, heart rate 109, 90% on room air, 36.7 temperature. HEENT. Head is normocephalic, atraumatic. Pupils are equal, round, reactive to light. EOMs intact. Full visual leal by confrontation. Ears are patent. Nose is patent. NECK: Soft and supple. There is no induration. There is 1 single Steri-Strip placed across the anterior incision, which is clean, dry and intact. The neck is soft. RESPIRATORY AND CARDIAC: No rales, rhonchi, wheeze or rub. Regular rate and rhythm. ABDOMEN: Soft, nontender. No peritoneal signs. /RECTAL: Deferred. NEURO: Patient is awake, alert and oriented to name, place, location, date, time and situation. Memory is intact to immediate , past and current events. Speech: No aphasia, dysarthria, dysphonia. Cranial nerves II-XII grossly intact. Motor: Patient has 5/5 strength in all muscle groups of bilateral upper and lower extremities to include deltoids, biceps, triceps, brachioradialis, wrist flexion extensors, access specialist intrinsic fingers, iliopsoas, quadriceps, hamstring, plantar flexion, dorsiflexion, EHL testing. Sensation is grossly intact to light touch throughout all dermatome distributions in upper and lower extremities. Negative straight-leg raise. Negative LAM test. Reflexes of biceps, triceps, brachioradialis, knee jerk and ankle jerk are 2+/4. Toes are downgoing bilaterally. Jaya's negative. Babinski negative with no evidence of clonus. MEDICAL DECISION MAKING AND DIAGNOSTIC STUDIES: Laboratory tests obtained 09/21 at 0050 hours show a white count of 5.72, a hemoglobin and hematocrit of 15.6 and 45.4 with a platelet count of 321. Chemistry on 09/21/2018: Sodium 138, potassium 3.7, chloride 107, CO2 19, BUN 14, creatinine 0.7 and glucose of 119. Diagnostic Studies: Imaging: CT scan of the cervical spine was obtained which showed a small amount of high-density fluid within the space at the level of the postsurgical hardware. Given the density, the reading, question whether an abscess or hematoma is possible. There is no significant airway obstruction. These images were reviewed with Dr. Reis. IMPRESSION: 1. Status post anterior cervical diskectomy and fusion on 09/14/2018. 2. Cervical spine pain exacerbation. 3. Multiple medical conditions. PLAN/DISCUSSION: Nela is a 68-year-old female who was admitted to our service for an exacerbation of neck pain and neck spasms that was not well controlled on oral medications at home. She came in to the emergency department complaining of upper back pain and spasms but mainly neck pain. We will work on her pain control at this time. Her labs look fine. Her CT scan was reviewed with Dr. Reis as well. Will continue here in the step-down unit. Will attempt to have pharmacy consult on her pain medications as well. I went ahead and initially changed her p.r.n. Robaxin to scheduled and increased the frequency of the Valium, which she has been tolerating on prior to admission here. All questions and concerns are answered. The patient understands and agrees. NEUROSURGERY ATTENDING NOTE I saw the patient the morning of her admission at 7 am. She has severe pain and is admitted for pain control. We will make appropriate modifications to her medications and work on dc home. /[id number]/MODL MTDD
[2018-09-21] MEDS: HYDROmorphONE/DILAUDID 2 MG TAB PO PRN (09:32)
[2018-09-21] MEDS: ESTRADIOL PO SCH (11:26)
[2018-09-21] MEDS: NORETHINDRONE ACET PO SCH (11:26)
[2018-09-21] MEDS: HYDROMORPHONE HCL 8 MG PO SCH (11:27)
[2018-09-21] MEDS: MILNACIPRAN HCL 100 MG PO SCH ×2 (11:27→17:09)
[2018-09-21] MEDS: METHOCARBAMOL 750 MG TAB PO SCH ×3 (11:57→20:49)
--- NOTE | 2018-09-21 14:52 | ASMTCMCOM ---
CM Note CM Note Notes: Patient admitted for neck pain & spasms. Recent C4-6 ACDF, of this month. Patient lives in [place] with her but is staying at a friend's home in [place] for as long as need be. Of note, patient did d/c on last admission independently with and friend. Met with patient to discuss possible dispo needs, patient is open to [facility] upon d/c but would like to run it by her friend (greenhouse manager of home in [place]) first. CM will revisit again on Tuesday. Address of home in [place]: [address] [place] [address] [place] [address]. Therapy is recommending home care at this time. CM will continue to follow. Plan: TBD, possibly HHC Date Signed: 09/21/2018 02:51 PM Electronically Signed By:Montse Gordillo RN
[2018-09-21] MEDS: ACETAMINOPHEN 325 MG TAB PO SCH (16:26)
[2018-09-21] MEDS ORDERED: DILTIAZEM CD 120 MG CAP PO SCH (17:00)
[2018-09-21] MEDS ORDERED: MELATONIN 3 MG TAB PO SCH (21:00)
[2018-09-21] MEDS ORDERED: ZOLPIDEM TARTRATE 5 MG TAB PO SCH (21:00)
[2018-09-21] MEDS: DIAZEPAM 10 MG TAB PO PRN (22:43)
[2018-09-22] MEDS: HYDROmorphONE/DILAUDID 2 MG TAB PO PRN (02:26)
[2018-09-22] MEDS: DIAZEPAM 10 MG TAB PO PRN ×2 (02:44→08:23)
[2018-09-22] MEDS: ACETAMINOPHEN 325 MG TAB PO PRN (02:45)
[2018-09-22] MEDS: METHOCARBAMOL 750 MG TAB PO SCH ×2 (05:07→11:45)
[2018-09-22] MEDS: LEVOTHYROXINE 150 MCG TAB PO SCH (05:07)
[2018-09-22] MEDS ORDERED: BELIMUMAB 200 MG SQ SCH (06:43)
[2018-09-22] MEDS: ENOXAPARIN 40 MG/0.4 ML SYR SC SCH (08:13)
[2018-09-22] MEDS: SENNOSIDES/DOCUSATE SODIUM TAB PO SCH (08:13)
[2018-09-22] MEDS: DILTIAZEM CD 120 MG CAP PO SCH (08:14)
--- NOTE | 2018-09-22 08:17 | SOAPPROG ---
SOAP Progress Note Assessment/Plan: Assessment: 68 yo female with H/O chronic pain who is s/p C4-6 on 09/14/18. Readmitted for pain control and has new right C5 weakness that she noticed yesterday. Currently pain appears controlled however she complains of pain Plan: Discussed with Dr. Booker Will obtain MRI Cspine wo contrast to evaluate due to new right deltoid weakness CPM in hard collar She is floor status in an SDU room PT/OT Pain mgmt. DC planning Subjective: Pt out of bed walking around room and brushing her teeth. She complains of posterior neck pain radiating to both shoulders, but move comfortably. She reports right arm weakness (deltoid). Objective: Vital Signs Temp Pulse Resp BP Pulse Ox 36.2 C 84 16 138/74 H 99 09/21/18 22:53 09/21/18 22:53 09/21/18 22:53 09/21/18 22:53 09/21/18 22:53 09/21/18 09/22/18 09/23/18 05:59 05:59 05:59 Intake Total 700 Output Total 350 1700 Balance -350 -1000 Neuro: Ambulatory A+Ox4 Right Deltoid 4/5 5/5 otherwise throughout upper/lower ext sens +LT throughout Incision: CDI steri strip in place ICD10 Worksheet Patient Problems: Problems Problem Status Onset Neck pain Acute Fusion of spine of cervical region Acute
[2018-09-22] MEDS: HYDROXYCHLOROQUINE SULFATE 200 MG TAB PO SCH (08:21)
[2018-09-22] MEDS: ATENOLOL 100 MG TAB PO SCH (08:21)
[2018-09-22] MEDS: sulfaSALAzine 500 MG TAB PO SCH (08:21)
[2018-09-22] MEDS: ACETAMINOPHEN 325 MG TAB PO SCH (08:23)
[2018-09-22 08:25] VITALS: BP 127/78
[2018-09-22] MEDS ORDERED: PHARMACY PAIN CONSULT 1 EA MISC SCH (08:30)
[2018-09-22] MEDS ORDERED: HYDROmorphONE/DILAUDID 2 MG TAB PO PRN (09:00)
[2018-09-22] MEDS ORDERED: GABAPENTIN 100 MG CAP PO SCH (09:00)
[2018-09-22] MEDS ORDERED: ACETAMINOPHEN 500 MG TAB PO SCH (09:00)
[2018-09-22] MEDS: HYDROMORPHONE HCL 8 MG PO SCH (09:38)
[2018-09-22] MEDS: MILNACIPRAN HCL 100 MG PO SCH (09:38)
[2018-09-22] MEDS: ESTRADIOL PO SCH (09:38)
[2018-09-22] MEDS: NORETHINDRONE ACET PO SCH (09:38)
[2018-09-22] MEDS ORDERED: POLYETHYLENE GLYCOL 3350 17 GM PKT PO SCH ×2 (09:45→16:00)
--- NOTE | 2018-09-22 14:47 | ASMTDCNOTE ---
Case Management Discharge Discharge Order Complete? Answers: Yes Patient to Obtain Answers: Independently Medications Transportation Arranged Answers: Family/Friends Family Notified Answers: Yes Notes: , Christian Discharge Comments Notes: Patient is discharging home today. Home Health Care was recommended, however, patient wnats to go to an outpatient PT program and plans to talk to Dr. Phillips about his recommendations. Patient will be staying with her friends in [place] as long as she needs to during her recovery. She then plans to return home to [place]. No further needs. Date Signed: 09/22/2018 02:46 PM Electronically Signed By:Adeline Cisneros LCSW
--- NOTE | 2018-09-22 14:50 | ASDISCHSUM ---
Discharge Information Plan Status:Home with No Needs Medically Cleared to Leave:09/21/2018 Discharge Date:09/22/2018 02:36 PM CM D/C Disposition:Home, Routine, Self-Care ADT D/C Disposition:Home, Routine, Self-Care Projected Discharge Date:09/22/2018 11:00 AM Transportation at D/C:Family Discharge Delay Reason: Follow-Up Date:09/22/2018 11:00 AM Discharge Slot:2 - 12:01 pm - 18:00 pm Final Diagnosis:Fusion of spine, neck pain Placement Information Referral Type:*Home Health Care Services Referral ID:[id number] Provider Name: Address 1: Phone Number: Address 2: Fax Number: City: Selection Factors: State: Patient Contact Information Contact Name:EDMUNDO Relationship: Address:[address] Work Phone: City: [place] Alternate Phone: State/Zip Code:[place] [address] Email: Financial Information Financial Class:Medicare Primary Plan Desc:MEDICARE OUTPATIENT Primary Plan Number:[id number] Secondary Plan Desc: OUT OF STATE [facility] Secondary Plan Number:[id number] Assessment Information LACE LACE Length of stay for Answers: Less than 1 day current admission Acuity / Level of Answers: No Care: Did the patient have an inpatient admission? Comorbidities - select Answers: Opioid dependence all that apply / Chronic pain Other Notes: Lupus; HTN; Hypothyroid # of Emergency department Answers: 1-2 visits in the last 6 months Score: 6 Date Signed: 09/22/2018 02:49 PM Electronically Signed By:Adeline Cisneros LCSW [facility] CM Progress Note CM Note CM Note Notes: Patient admitted for neck pain & spasms. Recent C4-6 ACDF, of this month. Patient lives in [place] with her but is staying at a friend's home in [place] for as long as need be. Of note, patient did d/c on last admission independently with and friend. Met with patient to discuss possible dispo needs, patient is open to [facility] upon d/c but would like to run it by her friend (follow up manager of home in [place]) first. CM will revisit again on Tuesday. Address of home in [place]: [address] [place] [address] [place] [address]. Therapy is recommending home care at this time. CM will continue to follow. Plan: TBD, possibly [facility] Date Signed: 09/21/2018 02:51 PM Electronically Signed By:Montse Gordillo RN Case Management Discharge Plan Note Case Management Discharge Discharge Order Complete? Answers: Yes Patient to Obtain Answers: Independently Medications Transportation Arranged Answers: Family/Friends Family Notified Answers: Yes Notes: Christian Discharge Comments Notes: Patient is discharging home today. Home Health Care was recommended, however, patient wnats to go to an outpatient PT program and plans to talk to Dr. Phillips about his recommendations. Patient will be staying with her friends in [place] as long as she needs to during her recovery. She then plans to return home to [place]. No further needs. Date Signed: 09/22/2018 02:46 PM Electronically Signed By:Adeline Cisneros LCSW Intervention Information
== END 2018-09-22 14:36 | disposition home or self-care (01) ==
LOC: F2N 04:24
PROVIDERS: ADMIT Neurological Surgery; ATTEND Neurological Surgery
DX: M54.2 Cervicalgia (principal); M62.838 Other muscle spasm; E86.9 Volume depletion, unspecified; M06.9 Rheumatoid arthritis, unspecified; M32.9 Systemic lupus erythematosus, unspecified; G43.909 Migraine, unspecified, not intractable, without status migrainosus; I10 Essential (primary) hypertension; M79.7 Fibromyalgia; E03.9 Hypothyroidism, unspecified; Z87.891 Personal history of nicotine dependence; Z98.890 Other specified postprocedural states; Z98.1 Arthrodesis status
CPT/HCPCS: 72125; 72141; 92526; 92610; 96361; 96372; 96374; 96375; 96376; 97110; 97116; 97161; 97166; 97535; 99285; G0378; J1170; J1650; J2405